=== PATIENT | female | born 1940 | race Caucasian/White ===

== ENCOUNTER → 2023-12-13 | Outpatient (CLI) | payer MEDICARE | LOC: LAB 15:28 | DX: I10 Essential (primary) hypertension (principal) ==

== ENCOUNTER 2024-01-12 08:56 | Emergency (ER) | payer MEDICARE ==
[~2024-01-12] VITALS: Ht 162.6 cm; Wt 95.5 kg
[~2024-01-12 08:56] MED LIST: ACETAMINOPHEN500 M5 PO; ADULT LOW DOSE81 MG PO; AMLODIPINE BESYL5 MG PO; CEFDINIR300 MG PO; CENTRUM SILVER1 EAC1 PO; CYMBALTA60 M1 PO; LIDOCAINE HCL1 EACH TP; LYRICA200 MG PO; MAXZIDE 75 MG-1 EACH PO; PRESERVISION A1 EACH PO; PREVAGEN PO
[2024-01-12 10:24] LABS: BASO # 0.07 K/mm3 (0.02-0.10); EOS % 2.5 % (1.0-5.0); HEMATOCRIT 44.4 % (37.0-47.0); HEMOGLOBIN 14.3 g/dL (12.5-16.0); LYMPH# 2.01 K/mm3 (1.50-4.00); MEAN CELL VOLUME 96 fl (78-100); MEAN CORPUSCULAR HEMOGLOBIN 31 pg (27-31); MEAN CORPUSCULAR HGB CONC 32 g/dL (33-37); MEAN PLATELET VOLUME 9.9 fl (7.4-10.4); MONO # 0.58 K/mm3 (0.20-0.80); NEU # 5.14 K/mm3 (1.40-6.50); PLATELET COUNT 243 K/mm3 (130-400); RED BLOOD COUNT 4.65 M/mm3 (4.10-5.30); RED CELL DISTRIBUTION WIDTH 14.4 % (11.5-14.5)
[2024-01-12 10:32] LABS: ALBUMIN 4.2 g/dL (3.4-4.8)
[2024-01-12 10:34] LABS: CALCIUM 10.4 mg/dL (8.3-10.5)
[2024-01-12 10:35] LABS: TOTAL PROTEIN 7.3 g/dL (6.2-8.1)
[2024-01-12 10:37] LABS: TOTAL BILIRUBIN 0.5 mg/dL (0.2-1.2)
[2024-01-12 12:21] LABS: PH-URINE 6.5 (5.0 - 8.0); URINE APPEARANCE CLEAR (CLEAR); URINE BILIRUBIN NEGATIVE (NEGATIVE); URINE BLOOD NEGATIVE (NEGATIVE); URINE COLOR YELLOW (YELLOW); URINE GLUCOSE NEGATIVE (NEGATIVE); URINE KETONE NEGATIVE (NEGATIVE); URINE LEUKOCYTE ESTERASE NEGATIVE (NEGATIVE); URINE NITRATE NEGATIVE (NEGATIVE); URINE PROTEIN(semi-quant) NEGATIVE (NEGATIVE)
[2024-01-12 12:24] LABS: URINE WBC 0-1 /hpf (0-3)
[2024-01-12 12:46] VITALS: BP 150/82
== END 2024-01-12 13:19 | disposition home or self-care (01) ==
LOC: ED 08:56
PROVIDERS: Physician Assistant
DX: R29.6 Repeated falls (principal); M54.42 Lumbago with sciatica, left side